=== PATIENT | male | born 1995 ===

== ENCOUNTER 2018-03-07 16:53 | Emergency (ER) | payer BC ==
[2018-03-07 17:06] VITALS: BP 158/76; PULSE 98; RESP 16; TEMP 98.4; O2SAT 98
--- NOTE | 2018-03-07 18:00 | ED PDOC ---
HPI: Skin/Bite Injury Time Seen by Provider: 03/07/18 17:06 Chief Complaint (Nursing): Abnormal Skin Integrity Chief Complaint (Provider): Abnormal Skin Integrity History Per: Patient History/Exam Limitations: no limitations Onset/Duration Of Symptoms: Days (x3-4 days) Current Symptoms Are (Timing): Still Present Additional Complaint(s): Patient is a 22 y/o male with no significant past medical history who presents to the ED for evaluation of foreskin irritation for the last three to four days. Patient reports a history of similar symptoms that resolved spontaneously, but notes this time symptoms are lasting longer than usual. Patient claims to have not been sexually active in the past two months. Patient states his last partner was a male. Patient denies urinary symptoms, penile discharge, testicular pain, and abdominal pain. Patient has not taken any medication for relief of symptoms. Of note, patient denies any history of STD's and claims to always use p rotection. PCP: None Provided Past Medical History Reviewed: Historical Data, Nursing Documentation, Vital Signs Vital Signs: Last Vital Signs Temp 98.4 F 03/07/18 17:03 Pulse 98 H 03/07/18 17:03 Resp 16 03/07/18 17:03 BP 158/76 H 03/07/18 17:03 Pulse Ox 98 03/07/18 17:03 - Medical History PMH: No Chronic Diseases Denies: Sexually Transmitted Disease - Surgical History Other surgeries: Foot procedure when child - Family History Family History: States: No Known Family Hx - Social History Current smoker - smoking cessation education provided: No Alcohol: Social Drugs: Denies - Home Medications Home Medications: Ambulatory Orders Medication Instructions Recorded RX: Clotrimazole 1% Cream 1 applic TP BID #1 tube 03/07/18 [Lotrimin 1%] - Allergies Allergies/Adverse Reactions: Allergies Allergy/AdvReac Type Severity Reaction Status Date / Time No Known Allergies Allergy Verified 03/07/18 17:02 Review of Systems ROS Statement: Except As Marked, All Systems Reviewed And Found Negative Gastrointestinal: Negative for: Abdominal Pain Genitourinary Male: Positive for: Other (foreskin irritation). Negative for: Dysuria, Hematuria, Penile Discharge, Penile Pain Physical Exam - Reviewed Nursing Documentation Reviewed: Yes Vital Signs Reviewed: Yes - Physical Exam Comments: GENERAL APPEARANCE: Patient is awake, alert, oriented x 3, in no distress. SKIN: Warm, dry; (-) cyanosis. ENMT: Mucous membranes moist. Airway patent, (-) stridor. NECK: Supple, FROM CHEST AND RESPIRATORY: (-) rales, (-) rhonchi, (-) wheezes; breath sounds equal bilaterally. Respirations even and nonlabored. HEART AND CARDIOVASCULAR: (-) irregularity ABDOMEN AND GI: Soft (-) distention. Bowel sounds active x4 (-) tenderness (-) guarding, (-) rebound, (-) palpable masses, (-) CVA tenderness. EXTREMITIES: (-) deformity GENITAL EXAM (Nurse [employer] Chris): Normal uncircumcised male, (-) rashes or ulcers. Foreskin easily retractable (-) phimosis or paraphimosis. Erythema and scaling upon retraction or foreskin with scant amount of white discharge noted. (-) penile discharge, testicular pain, scrotal swelling. NEURO AND PSYCH: Mental status as above; (-) focal findings. Gait: steady. Speech: clear. (-) facial asymmetry (-) aphasia - Laboratory Results Urine dip results: Negative for: Leukocyte Esterase, Blood, Nitrate, Ketones, Glucose, Bilirubin, Protein - ECG O2 Sat by Pulse Oximetry: 98 (RA) Pulse Ox Interpretation: Normal Medical Decision Making Medical Decision Making: Impression: Balantis, penile irritation Plan: Urine Dipstick Chlamydia/GC RNA, TMA Lotrimin 1% 1 applic TOP Re-evaluation 1800 Udip reviewed and unremarkable. On re-evaluation, patient reports improvement of symptoms. On exam, patient remains AAOx3, in no acute distress. Vitals stable. Lab/Diagnostic results d/w the patient in great detail. Diagnosis of penile skin irritation, balanitis d/w the patient. Based on history, exam and diagnostic results, plan will be for outpatient follow up with urology/clinic. Patient instructed to follow-up with pmd / referral provided / the clinic in 1- 2 days without fail. Advised to take medication as prescribed. Return to the emergency room at any time for any new or worsening symptoms. Patient states he fully agrees with and understands discharge instructions. States that he agrees with the plan and disposition. Verbalized and repeated discharge instructions and plan. I have given the patient opportunity to ask any additional questions. Scribe Attestation: Documented by Kwesi Lange, acting as a scribe for GERALDO Edge. Provider Scribe Attestation: All medical record entries made by the Scribe were at my direction and personally dictated by me. I have reviewed the chart and agree that the record accurately reflects my personal performance of the history, physical exam, medical decision making, and the department course for this patient. I have also personally directed, reviewed, and agree with the discharge instructions and disposition. Disposition - Clinical Impression Clinical Impression: Balanitis, Penile irritation - Patient ED Disposition Is Patient to be Admitted: No Counseled Patient/Family Regarding: Studies Performed, Diagnosis, Need For Followup, Rx Given - Disposition Referrals: [facility] [Outside] Messi Dixon Jr., MD [Staff Provider] - Disposition: Routine/Home Disposition Time: 18:15 Condition: STABLE Additional Instructions: The emergency medical care you received today was directed at your acute symptoms. If you were prescribed any medication, please fill it and take as directed. It may take several days for your symptoms to resolve. Return to the Emergency Department if your symptoms worsen, do not improve, or if you have any other problems. Please contact your doctor in 2 days for re-evaluation and follow up / or call one of the physicians/clinics you have been referred to that are listed on the Patient Visit Information form that is included in your discharge packet. Bring any paperwork you were given at discharge with you along with any medications you are taking to your follow up visit. Our treatment cannot replace ongoing medical care by a primary care provider (PCP) outside of the emergency department. Prescriptions: RX: Clotrimazole 1% Cream [Lotrimin 1%] 1 applic TP BID #1 tube Instructions: Balanitis Forms: [email or web address] (Polish) Print Language: DJIBOUTIAN - POA Present On Arrival: None
== END 2018-03-07 18:27 | disposition home or self-care (01) ==
LOC: H.ER 16:53
DX: N48.1 Balanitis (principal)